=== PATIENT | male | born 1985 | race Caucasian/White ===

== ENCOUNTER 2016-07-29 09:57 | Emergency (ER) | payer OTHER ==
[~2016-07-29] VITALS: Ht 185.4 cm; Wt 147.4 kg
[2016-07-29 11:16] VITALS: BP 132/72
[2016-07-29] MEDS ORDERED: IBUPROFEN 600600 M1 PO (11:37)
[2016-07-29] MEDS ORDERED: NORCO 5-325 TA1 EACH PO (11:37)
[2016-07-29] MEDS ORDERED: TIZANIDINE HCL4 MG PO (11:37)
== END 2016-07-29 12:25 | disposition home or self-care (01) ==
LOC: ER 09:57
DX: S39.012A Strain of muscle, fascia and tendon of lower back, initial encounter (principal); X58.XXXA Exposure to other specified factors, initial encounter; Y93.89 Activity, other specified; Y92.89 Other specified places as the place of occurrence of the external cause; Y99.9 Unspecified external cause status